=== PATIENT | male | born 1960 | race Caucasian/White ===

== ENCOUNTER 2022-05-28 11:38 | Emergency (ER) | payer MEDICAID, OTHER ==
[~2022-05-28] VITALS: Ht 175.3 cm; Wt 59.0 kg
[2022-05-28 13:05] VITALS: BP 137/58
[2022-05-28] MEDS ORDERED: ACET-1158 PO (13:25)
[2022-05-28] MEDS ORDERED: AMOX-277 PO (13:25)
== END 2022-05-28 13:48 | disposition home or self-care (01) ==
LOC: ER 11:38
DX: J04.0 Acute laryngitis (principal); F17.200 Nicotine dependence, unspecified, uncomplicated; Z20.822 Contact with and (suspected) exposure to COVID-19
CPT/HCPCS: 36415; 71046; 87070; 87804; 87880